=== PATIENT | female | born 1995 | race Caucasian/White ===

== ENCOUNTER 2018-06-18 17:20 | Emergency (ER) | payer OTHER ==
[~2018-06-18] VITALS: Ht 160 cm; Wt 43.2 kg
[2018-06-18] MEDS ORDERED: PRENTAB55 PO (17:27)
[2018-06-18 18:23] LABS: BASO # 0.1 10^3/uL (0.0-0.2); BASO % 0.5 % (0.0-1.0); EOS % 0.3 % (0.0-3.0); HEMATOCRIT 38.8 % (36.0-47.0); HEMOGLOBIN 13.5 g/dl (12.0-15.5); LYMPH # 2.9 10^3/uL (1.5-6.5); LYMPH % 26.7 % (24.0-44.0); MEAN CORPUSCULAR HEMOGLOBIN 31.6 pg (27.0-33.0); MEAN CORPUSCULAR HGB CONC 34.8 g/dl (32.0-36.5); MEAN CORPUSCULAR VOLUME 90.9 fl (80.0-96.0); MONO # 0.7 10^3/uL (0.0-0.8); MONO % 6.2 % (0.0-5.0); NEUTROPHILS # 7.2 10^3/uL (1.8-7.7); NEUTROPHILS % 65.9 % (36.0-66.0); PLATELET COUNT, AUTOMATED 240 10^3/uL (150-450); RED BLOOD COUNT 4.27 10^6/uL (4.00-5.40); WHITE BLOOD COUNT 10.9 10^3/uL (4.0-10.0)
--- NOTE | 2018-06-18 19:15 | REPVR ---
EXAM: US First Trimester, Transabdominal EXAM DATE/TIME: 06/18/2018 6:32 PM CLINICAL HISTORY: 22 years old, female; Signs and symptoms; Lmp or gestational age (in weeks): 7; Antepartum complications; Bleeding; ; Additional info: Vag bleed, +preg TECHNIQUE: Real-time transabdominal obstetrical ultrasound of the maternal pelvis and a first trimester , less than 14 weeks 0 days, with image documentation. COMPARISON: No relevant prior studies available. FINDINGS: GESTATION: Gestation: Single gestational sac within the uterus. Heart rate: heart rate 115 beats per minute. Placenta: Small subchorionic hemorrhage demonstrated superior to the right gestational sac possibly implantation related. Amniotic fluid: Amniotic and chorionic fluid are normal for gestational age. BIOMETRY: Estimated gestational age: Gestational age based on crown-rump length is 6 weeks 4 days. LAURIE 02/07/2019. Gestational age based on LMP is 7 weeks 1 day. LAURIE 02/03/2019 [place]-Rump length: Single pole demonstrated with a crown-rump length of 7 millimeters. MATERNAL: Uterus: Unremarkable. Cervix: Unremarkable. Right adnexa: Unremarkable. Left adnexa: Unremarkable. Intraperitoneal: No intraperitoneal free fluid. IMPRESSION: Unremarkable early gestation of 6 weeks 4 days using crown-rump length. heart rate lower than typically demonstrated at this gestational age. Continued interval followup suggested as clinically directed. Electronically signed by: Chace Marquez On 06/18/2018 19:15:24 PM
[2018-06-18 19:48] VITALS: BP 115/65
== END 2018-06-18 19:49 | disposition home or self-care (01) ==
LOC: M ED 17:20
DX: O20.8 Other hemorrhage in early pregnancy (principal); Z3A.01 Less than 8 weeks gestation of pregnancy; Z79.899 Other long term (current) drug therapy; Z88.8 Allergy status to other drugs, medicaments and biological substances

== ENCOUNTER 2019-01-31 14:10 | Inpatient (IN) | payer OTHER ==
[2019-01-31] VITALS (8 sets, daily range): BP systolic 94–112; BP diastolic 56–70
[~2019-01-31] VITALS: Ht 160 cm; Wt 54.8 kg
[~2019-01-31 14:10] MED LIST: PRENTAB55 PO
[2019-01-31] MEDS ORDERED: UNIS25TA3 PO (14:37)
[2019-01-31] MEDS ORDERED: LACTATED RINGER'S 1000 ML IV STA (15:30)
--- NOTE | 2019-01-31 16:16 | HPEPDOC ---
Obstetrical History & Physical General Date of Admission Jan 31, 2019 at 15:05 Primary Care Physician: Shyla Ibarra MD History of Present Illness OB Considerations: Implantable metal PFO closure device, CPR only NO shocks! History of stroke due to PFO 22y/o G1 @ 39+4 wks by LMP c/w 8 wk US presents with leakage of clear fluid at 1319. Patient denies contractions, vaginal bleeding and endorses active movement. Chief Complaint: LOF, term Information Provided By: Patient Age: 22 : 1 Term: 0 Pre-term: 0 Abortions: 0 Livin Care Care: Good Care Dating Final EDC: Feb 03, 2019 Final EDC for Daily Update: Feb 03, 2019 1st Trimester Date: Jun 28, 2018 Estimated Date of Confinement: Feb 03, 2019 EGA at Admission: 39.4 Antepartum Course Diagnos(e)s History of stroke due to patent foramen ovale Implantable closure device, unable to accept defibrillation Height (inches): 63 Pre- weight (lbs.): 90 Admission Weight (lbs.): 121 Change in Weight (lbs.): 31 Past Medical History Past Obstetrical History : Past Obstetrical History: Primg[employer]ida [employer] OFFICER History: No pertinent history Past Medical History Medical History History of stroke secondary to patent foramen ovale Surgical History: Hernia repair, Tonsilectomy, [place] teeth, Other (Cardiac metal closure device placed. Mastoidectomy.) Family History Significant Family History: No pertinent family hx Social History Marital Status: Family situation: Spouse/partner home Psychosocial History: No pertinent psych hx * Smoker: non-smoker Alcohol: Denies Drugs: denies Abuse Violence Screening Have you been hit/kicked/slapp: No Have you been sexually assault: No Imunizations Tdap status: current Influenza Status: needs Allergies Coded Allergies: naproxen (Verified Adverse Reaction, Severe, renal failure, vomitting, 01/31/19) Medications Scheduled [id number]/Iron Fum/Folic/Docusate ( 19 Tablet) 1 Tab Tab, 1 TAB PO DAILY Scheduled PRN Doxylamine Succinate (Unisom Sleep Aid) 25 Mg Tablet, 1 TAB PO QPM PRN for SLEEP Physical Examination Physical Examination GENERAL: Alert and oriented times three. BREAST: . ABDOMEN: Gravid and non-tender to touch. FETUS: Is vertex (VTX) by sterile vaginal examination (SVE), fetus is vertex (VTX) by [place]. Vertex by TAUS. EFW 3200g HEART RATE: Regular rate and rhythm. LUNGS: Clear to auscultation (CTA). EXTREMITIES: No edema. No clonus. Vital Signs/I&O Vital Signs Date Time Temp Pulse Resp B/P (MAP) Pulse Ox O2 Delivery O2 Flow Rate FiO2 01/31/19 14:33 98.2 104 18 111/69 (83) Laboratory Data 24H LABS Laboratory Tests 2 01/31/19 15:08: Serology Scanned Report Hepatitis B Testing Pertinent Laboratoy Data Blood Type: B+ RBC Antibody Screen: Negative HIV: Negative Hepatitis B: Negative Hepatitis C: Unknown Rapid Plasma Reagin: Nonreactive Rubella: Immune Varicella: Nonreactive Chlamydia/Gonorrhea: Negative Group B Streptococcus: Negative Quad Screen Test: Negative (Maternity 21 negative) Cystic Fibrosis: Negative Anatomy Ultrasound Ultrasound Date: Oct 10, 2018 Placenta Location: Anterior Normal Anatomy: Yes Placenta Previa: No Estimated Weight (grams): 562 Steroid Therapy Steroid Therapy: No Vaginal Examination Dilation: 4 cm Effacement: 70% Station: -2 Cervical Consistency: Soft Cervical Position: Posterior Presentation: Cephalic presentation Position: Vertex (occiput) Assessment Heart Rate (FHR): 150 Variability: Moderate Accelerations: Positive Decelerations: None Tocometer Contractions: Yes Frequency: irregular, every 3-7 min. Duration: less than 60 seconds Strength: palpated as moderate Multi-drug resistant Organism: No history of MDRO Assessment/Plan Assessment 23y/o G1 @ 39+4 wks admitted for PROM clear fluid. EFW 3200g, Dylon FHR tracing. Plan Admit and orient. PATIENT CANNOT HAVE DEFIBRILLATION IN THE EVENT OF A CODE [place] [employer] Professor and consent. Diet: Clear liquid. Group B Streptococcus (GBS) negative. Labs and intravenous (IV) per unit protocol. Counseled on Pitocin and induction of labor (IOL). Lactated Ringers (LR): Bolus 1,000 mL, then at 125 mL/hr. Anticipate normal spontaneous delivery () C-S as appropriate. Labor and Delivery Counseling Discussed with patient procedures on labor and delivery to include external and internal monitoring of contractions and FHR. Discussed medications for induction of labor and medications for pain. Risks of labor and delivery include infections, which would be treated with antibiotics, need for episiotomy or tearing of the vaginal opening which will be repaired with absorbable sutures. Risks of bleeding to include need for blood transfusion with subsequent risks of bloodborne infection (Hepatitis/HIV) or transfusion reaction. Other procedures may be needed for distress such as forceps, vacuum or emergency . Other risks include injury to baby or additional procedures following delivery. Shyla Ibarra MD Jan 31, 2019 16:16
[2019-01-31 16:43] LABS: HEMATOCRIT 37.8 % (36.0-47.0); HEMOGLOBIN 13.2 g/dl (12.0-15.5); MEAN CORPUSCULAR HEMOGLOBIN 33.2 pg (27.0-33.0); MEAN CORPUSCULAR HGB CONC 34.9 g/dl (32.0-36.5); PLATELET COUNT, AUTOMATED 197 10^3/uL (150-450); RED BLOOD COUNT 3.98 10^6/uL (4.00-5.40)
--- NOTE | 2019-01-31 20:18 | IPNPDOC ---
Text Note Date of Service The patient was seen on 01/31/19. NOTE 22y/o G1 @ 39+4 wks by LMP c/w 8 wk US presents with leakage of clear fluid at 1319 S: Patient reports only feeling one painful contraction in last 4 hours. O: 140, mod cecilia +accels, no decels TOCO: q5 minutes DCE: 90/0 Unchanged from prior A/p: G1 @ 39+4 wks with PROM, not in labor after 4 hours observation -Continuous monitoring -Stat pit per protocol -GBS negative: no prophylaxis indicated -Repeat DCE 6 hours or sooner PRN VS,Fishbone, I+O VS, Fishbone, I+O Laboratory Tests 01/31/19 16:23 Vital Signs Date Time Temp Pulse Resp B/P (MAP) Pulse Ox O2 Delivery O2 Flow Rate FiO2 01/31/19 18:54 99.0 86 18 109/59 (76) Shyla Ibarra MD Jan 31, 2019 20:18
[2019-01-31] MEDS ORDERED: OXYTOCIN DRIP 30 UNITS in IV 1 EA IV SCH (21:00)
[2019-01-31] MEDS: LR 1,000 ML IV SCH (21:42)
[2019-02-01] VITALS (27 sets, daily range): BP systolic 79–132; BP diastolic 50–82
[2019-02-01] MEDS ORDERED: FENTANYL 2MCG/ML ROPIVACAINE 0.2% IN 0.9% NACL 100ML IVBAG As Ordered ONE (00:06)
[2019-02-01] MEDS ORDERED: ePHEDrine SULFATE 25 MG/5 ML(5MG/ML) SYRINGE IV PRN (00:45)
[2019-02-01] MEDS ORDERED: REFRIGERATOR IV KEYS XX PRN (00:45)
[2019-02-01] MEDS ORDERED: ONDANSETRON 4MG/2ML VIAL (J2405) IV PRN (00:45)
[2019-02-01] MEDS ORDERED: EPIDURAL COMMENT XX SCH (00:45)
[2019-02-01] MEDS ORDERED: diphenhydrAMINE INJ 50MG/ML VIAL (J1200) IV PRN (00:45)
[2019-02-01] MEDS ORDERED: NALOXONE INJ 0.4 MG/1 ML VIAL (J2310) IV PRN (00:45)
[2019-02-01] MEDS ORDERED: LACTATED RINGER'S 1000 ML IV PRN (00:45)
[2019-02-01] MEDS ORDERED: EPIDURAL/PCA KEYS XX PRN (00:45)
[2019-02-01] MEDS: FENTANYL/ROPIVACAINE/NACL BAG 100 ML EPIDURAL SCH ×2 (01:06→08:36)
--- NOTE | 2019-02-01 04:56 | IPNPDOC ---
Text Note Date of Service The patient was seen on 02/01/19. NOTE 22y/o G1 @ 39+5 wks by LMP c/w 8 wk US presents with leakage of clear fluid at 1319 S: Patient reports only feeling one painful contraction in last 4 hours. O: 130, mod cecilia +accels, no decels TOCO: q5 minutes DCE: 490/0 Unchanged from prior dce 0445 5/75/0, arom forebag clear Pit @ 14 A/p: G1 @ 39+5 in latent labor with Dylon tracing -Continuous monitoring -Continue pit per protocol -GBS negative: no prophylaxis indicated -Repeat DCE 4-6 hours or sooner PRN VS,Fishbone, I+O VS, Fishbone, I+O Laboratory Tests 01/31/19 16:23 Vital Signs Date Time Temp Pulse Resp B/P (MAP) Pulse Ox O2 Delivery O2 Flow Rate FiO2 01/31/19 18:54 99.0 86 18 109/59 (76) I&O- Last 24 Hours up to 6 AM 02/01/19 05:59 Intake Total 1480 ml Balance 1480 ml Shyla Ibarra MD Feb 01, 2019 04:56
[2019-02-01] MEDS: LR 1,000 ML IV SCH (08:36)
--- NOTE | 2019-02-01 09:41 | IPNPDOC ---
Obstetrical Progress Note Date of Service Feb 01, 2019 Subjective Assumed care of 23yo at 39+5wks, admitted [id number] for PROM. B+, GBS Negative. Currently on Pitocin, started last night around 2100. Working epidural in place. Pt currently reports lower abdominal pain and vaginal pressure with contractions. She has not used her epidural bolus button for relief. Objective O: VSS VE: C/C/+1, caput present FHR: 140s moderate variability, + Accels, early decels present; x1 late decel present; overall reassuring CTX: Q2-3 minutes Pitocin running at 20mu/min Vital Signs Date Time Temp Pulse Resp B/P (MAP) Pulse Ox O2 Delivery O2 Flow Rate FiO2 02/01/19 07:24 97.2 65 18 106/70 (82) Assessment Heart Rate (FHR): 140 Variability: Moderate Accelerations: Positive Decelerations: Early, Late (one late deceleration; overall reassuring) Heart Rate Tracing: Category II ( d/t late variable) Tocometer Contractions: Yes Frequency: regular (q 2-3 minutes) Sterile Vaginal Examination Dilation: complete Effacement (%): 100% Station: +1 Cervical Consistency: Soft Cervical Position: Anterior Postion/Presentation: Cephalic presentation Assessment and Plan Status: Reassuring Group B Streptococcus: Negative Anticipate: Vaginal Delivery Additional Comments A: 23yo at 39+5wks, Second Stage, Pitocin currently at 20mu/min; Category II FHT d/t x1 late deceleration, overall reassuring. P: CEFM x2 Pt to use epidural button PRN Allow pt to labor down x1 hour then start pushing Anticipate Consult with OB if indicated RAMSEY DIXON CNM Feb 01, 2019 09:41
[2019-02-01] MEDS ORDERED: ACETAMINOPHEN TAB 650MG DOSE (2X325MG) PO PRN (12:30)
[2019-02-01] MEDS ORDERED: DIBUCAINE 1% OINTMENT 30GM TOP PRN (12:30)
[2019-02-01] MEDS ORDERED: OXYTOCIN INJ 10 UNITS/ML VIAL (J2590) IM ONE (12:30)
[2019-02-01] MEDS ORDERED: ACETAMINOPHEN 500 MG TAB PO PRN (12:30)
[2019-02-01] MEDS ORDERED: DOCUSATE SODIUM 100 MG CAP PO PRN (12:30)
[2019-02-01] MEDS ORDERED: PERCOCET 5MG/325MG TAB PO PRN (12:30)
[2019-02-01] MEDS ORDERED: OXYTOCIN DRIP 30 UNITS in IV 1 EA IV SCH (12:30)
--- NOTE | 2019-02-01 12:36 | DNPDOC ---
[facility] Delivery Note Delivery Note DATE OF DELIVERY: February 01, 2019 PREDELIVERY DIAGNOSIS: 23yo at 39+5wks, PROM with Pitocin Augmentation POST DELIVERY DIAGNOSIS: Delivered. PROCEDURE: Uncomplicated OIL FIELD LABORER: SANTHOSH Dixon ANESTHESIA: Epidural ESTIMATED BLOOD LOSS: 200mL FINDINGS: 7 pound-0 ounce (3180g) infant, Score 9/10, nuchal cord times 1 (loose and easily reducable). DELIVERY SUMMARY: Called to room for 23yo at 39+5wks who was C/C/+2-3, ready for imminent delivery. With continue strong/effective pushing, viable male infant delivered over a protected perineum. head delivered NEIL and restituted to ROT. Loose nuchal cord easily reduced. Left anterior shoulder delivered with ease, followed by right posterior shoulder, then remainder of fetus delivered to maternal abdomen. Strong, lusty cry. Once cord stopped pulsing, clamped x2 and cut by FOB. Placenta delivered spontaneously and appeared intact, 3VC. Pitocin bolus started; fundus firm, EBL 200mL. Upon inspection of vagina, perineum, and cervix, bilateral labial lacerations noted and repaired in usual fashion with 4- 0 vicryl; good hemostasis achieved. Family unit bonding well; anticipate uncomplicated PP course. RAMSEY DIXON CNM Feb 01, 2019 12:36
[2019-02-01] MEDS: PRENATAL VITAMINS CHEWABLE TABLET PO SCH (14:00)
[2019-02-02 06:34] VITALS: BP 113/73
[2019-02-02] MEDS: PRENATAL VITAMINS CHEWABLE TABLET PO SCH (08:27)
--- NOTE | 2019-02-02 09:01 | IPNPDOC ---
Progress Note Date of Service: Feb 02, 2019 Day#: 1 Progress Note SUBJECT Patient is a 23 yo S/P PPD #1. Today without concerns. She has been ambulating, voiding spontaneously without issue and tolerating regular diet. Breast feeding without issue. OBJECTIVE: VITAL SIGNS: Within normal limits, afebrile. Alert and oriented times three. Abdomen: Fundus firm at U-2. Soft, NTTP. LE: no edema/erytherma/tenderness A/p ppd #1, doing well. contraceptive counseling. patient plans on barrier contraceptive. more effective options offered and patient declined. continue with care. anticipate d/c home ppd #2. Le, DO VS, I&O, 24H, Fishbone Vital Signs/I&O Vital Signs Date Time Temp Pulse Resp B/P (MAP) Pulse Ox O2 Delivery O2 Flow Rate FiO2 02/02/19 06:34 98.4 84 16 113/73 (86) Room Air I&O- Last 24 Hours up to 6 AM 02/02/19 06:00 Intake Total 5024 ml Output Total 2200 ml Balance 2824 ml ARNAUD VALVERDE DO Feb 02, 2019 09:01
[2019-02-02 17:56] VITALS: BP 105/71
[2019-02-03 05:34] VITALS: BP 119/77
--- NOTE | 2019-02-03 07:38 | IPNPDOC ---
Progress Note Date of Service: Feb 03, 2019 Progress Note Patient is a 23 yo S/P PPD #2. Today without concerns. She has been ambulating, voiding spontaneously without issue and tolerating regular diet. Breast feeding without issue. Baby may need bili lights. OBJECTIVE: VITAL SIGNS: Within normal limits, afebrile. Alert and oriented times three. Abdomen: Fundus firm at U-2. Soft, NTTP. LE: no edema/erytherma/tenderness A/p ppd #2, doing well. Discharge instructions. Discharge today. DO [place] VS, I&O, 24H, Fishbone Vital Signs/I&O Vital Signs Date Time Temp Pulse Resp B/P (MAP) Pulse Ox O2 Delivery O2 Flow Rate FiO2 02/03/19 05:34 98.0 75 16 119/77 (91) Room Air ARNAUD VALVERDE DO Feb 03, 2019 07:38
--- NOTE | 2019-02-03 07:47 | OBDS ---
[facility] Obstetrical Discharge Sum. Obstetrical Discharge Summary Tree Trimmer Helper/Provider: ARNAUD VALVERDE DO Date: Feb 03, 2019 : 1 Term: 1 Pre-term: 0 Abortions: 0 Livin VDRL: Non-Reactive Rh: Positive Rubella: Immune Weight: pounds (7), ounces (0) Anesthesia: Regional Anesthesia A/P, Post Course List any complications Admission diagnosis: spontaneous rupture of membranes at term Discharge diagnosis: Condition at Discharge: stable Discharge Instructions: Home Activity: as tolerated Diet: regular Medications: filled at ft drum Follow-up: 6 weeks visit Hospital course: Patient admitted for spontaneous ruptured of membranes at term. She progressed to delivery vaginally. course uncomplicated and patient discharged home on day #2. ARNAUD VALVERDE DO Feb 02, 2019 18:37
[2019-02-03] MEDS: PRENATAL VITAMINS CHEWABLE TABLET PO SCH (11:26)
== END 2019-02-03 11:45 | disposition home or self-care (01) | DRG 807 ==
LOC: M LDO 14:10 → M LDI 15:05 → M OBS 02-01 14:35
PROVIDERS: ADMIT Obstetrics & Gynecology; ATTEND Obstetrics & Gynecology
PROC: 10E0XZZ Delivery of Products of Conception, External Approach (ICD-10-PCS; principal; 2019-02-01)
PROC: 0HQ9XZZ Repair Perineum Skin, External Approach (ICD-10-PCS; 2019-02-01)
DX: O42.02 Full-term premature rupture of membranes, onset of labor within 24 hours of rupture (principal); Z37.0 Single live birth; Z3A.39 39 weeks gestation of pregnancy; O69.81X0 Labor and delivery complicated by cord around neck, without compression, not applicable or unspecified; O70.0 First degree perineal laceration during delivery

== ENCOUNTER 2023-03-26 09:05 | Outpatient (CLI) | payer OTHER ==
[~2023-03-26] VITALS: Ht 160 cm; Wt 56.4 kg
[~2023-03-26 09:05] MED LIST changes: +UNIS25TA3 PO
[2023-03-26 09:22] VITALS: BP 122/77
[2023-03-26] MEDS ORDERED: HOME MED LIST COMPLETE! XX SCH (09:30)
== END 2023-03-26 11:28 | disposition home or self-care (01) ==
LOC: M LDO 09:05
PROVIDERS: ATTEND Advanced Practice Midwife
DX: O47.1 False labor at or after 37 completed weeks of gestation (principal); Z3A.38 38 weeks gestation of pregnancy; Z88.8 Allergy status to other drugs, medicaments and biological substances
CPT/HCPCS: 59025; G0463

== ENCOUNTER 2023-04-01 02:33 | Inpatient (IN) | payer OTHER ==
[~2023-04-01] VITALS: Ht 160 cm; Wt 56.4 kg
[2023-04-01] VITALS (7 sets, daily range): BP systolic 101–141; BP diastolic 60–78; O2SAT 97
[2023-04-01] MEDS ORDERED: HOME MED LIST COMPLETE! XX SCH (02:50)
[2023-04-01] MEDS ORDERED: METHYLERGONOVINE MALEATE 0.2MG/ML 1ML VIAL IM PRN ×2 (03:00→04:45)
[2023-04-01] MEDS ORDERED: OXYTOCIN DRIP 30 UNITS in IV 1 EA IV PRN ×4 (03:00)
[2023-04-01] MEDS ORDERED: LR 1,000 ML IV SCH ×2 (03:00→04:45)
[2023-04-01] MEDS ORDERED: TRANEXAMIC ACID INJection 1,000 MG in NS 100 ML IV PRN (03:00)
[2023-04-01] MEDS ORDERED: LIDOCAINE 1% MDV 20ML VIAL INFIL PRN (03:00)
[2023-04-01] MEDS ORDERED: LACTATED RINGER'S 1000 ML IV STA (03:04)
[2023-04-01 03:31] LABS: HEMATOCRIT 37.7 % (36.0-47.0); HEMOGLOBIN 13.4 g/dl (12.0-15.5); MEAN CORPUSCULAR HEMOGLOBIN 32.9 pg (27.0-33.0); MEAN CORPUSCULAR HGB CONC 35.5 g/dl (32.0-36.5); MEAN CORPUSCULAR VOLUME 92.6 fl (80.0-96.0); PLATELET COUNT, AUTOMATED 205 10^3/uL (150-450); RED BLOOD COUNT 4.07 10^6/uL (4.00-5.40); WHITE BLOOD COUNT 9.3 10^3/uL (4.0-10.0)
[2023-04-01 04:26] LABS: CORD GAS ABE A 0.5; CORD GAS ABE V -1.6; CORD GAS HCO3 A 26.7 MMOL/L; CORD GAS O2 SAT A 37.8 %; CORD GAS O2 SAT V 66.2 %; CORD GAS PCO2 A 48.2 mmHg; CORD GAS PCO2 V 34.4 mmHg; CORD GAS PH A 7.361 UNITS; CORD GAS PH V 7.424 UNITS; CORD GAS PO2 A 16.8 mmHg; CORD GAS PO2 V 24.8 mmHg; CORD GAS SBC A 23.4 MMOL/L; CORD GAS SBC V 22.3 MMOL/L; CORD GAS TCO2 A 28.2 MMOL/L; CORD GAS TCO2 V 23.1 MMOL/L
[2023-04-01] MEDS ORDERED: OXYTOCIN DRIP 30 UNITS in IV 1 EA IV SCH (04:45)
[2023-04-01] MEDS ORDERED: RHOGAM 300MCG (1500IU) INJ IM SCH (04:45)
[2023-04-01] MEDS ORDERED: ONDANSETRON 4MG 2ML VIAL IV PRN (04:45)
[2023-04-01] MEDS ORDERED: DOCUSATE SODIUM 100MG CAPSULE PO PRN (04:45)
[2023-04-01] MEDS ORDERED: METOCLOPRAMIDE INJ 10MG/2ML VIAL IV PRN (04:45)
[2023-04-01] MEDS ORDERED: DIBUCAINE 1% OINTMENT 30GM TOP PRN (04:45)
[2023-04-01] MEDS ORDERED: ACETAMINOPHEN TAB 650MG DOSE (2X325MG) PO PRN (04:45)
[2023-04-01] MEDS ORDERED: ACETAMINOPHEN 500 MG TAB PO PRN (04:45)
[2023-04-01] MEDS ORDERED: PHYTONADIONE 1MG/0.5ML SYRINGE As Ordered ONE (04:51)
[2023-04-01] MEDS ORDERED: ERYTHROMYCIN OPHTH OINT As Ordered ONE (04:52)
[2023-04-01] MEDS ORDERED: HEPATITIS B VAC *BIRTH DOSE ONLY*(ENGERIX) 10 MCG/0.5 ML SYRINGE As Ordered ONE (04:52)
[2023-04-01] MEDS ORDERED: PRENATAL VITAMINS CHEWABLE TABLET PO SCH (09:00)
[2023-04-01] MEDS ORDERED: SLF 3 ML SYR IV PRN (09:40)
[2023-04-01] MEDS: PRENATAL VITAMINS CHEWABLE TABLET PO SCH (09:51)
[2023-04-01] MEDS ORDERED: SLF 3 ML SYR IV SCH (14:00)
[2023-04-02 06:00] VITALS: BP 94/56
[2023-04-02 07:40] LABS: HEMATOCRIT 35.6 % (36.0-47.0); MEAN CORPUSCULAR HEMOGLOBIN 31.9 pg (27.0-33.0); MEAN CORPUSCULAR HGB CONC 33.7 g/dl (32.0-36.5); MEAN CORPUSCULAR VOLUME 94.7 fl (80.0-96.0); PLATELET COUNT, AUTOMATED 154 10^3/uL (150-450); RED BLOOD COUNT 3.76 10^6/uL (4.00-5.40); WHITE BLOOD COUNT 8.8 10^3/uL (4.0-10.0)
[2023-04-02] MEDS: PRENATAL VITAMINS CHEWABLE TABLET PO SCH (10:39)
[2023-04-03] MEDS ORDERED: MEASLES,MUMPS,RUBELLA VACCINE INJ (MMR-II) SC.IMMUN ONE (09:00)
== END 2023-04-02 14:15 | disposition home or self-care (01) | DRG 807 ==
LOC: M LDO 02:33 → M LDI 02:58 → M OBS 06:10
PROVIDERS: ADMIT Obstetrics & Gynecology; ATTEND Obstetrics & Gynecology
PROC: 10E0XZZ Delivery of Products of Conception, External Approach (ICD-10-PCS; principal; 2023-04-01)
DX: O69.82X0 Labor and delivery complicated by other cord entanglement, without compression, not applicable or unspecified (principal); Z37.0 Single live birth; Z3A.38 38 weeks gestation of pregnancy

== ENCOUNTER 2023-07-04 07:06 | Day surgery (SDC) | payer OTHER ==
[~2023-07-04] VITALS: Ht 160 cm; Wt 45.4 kg
[~2023-07-04 07:06] MED LIST changes: +PRENTAB53 PO
[2023-07-04 07:51] LABS: HEMATOCRIT 37.3 % (36.0-47.0); HEMOGLOBIN 12.7 g/dl (12.0-15.5)
[2023-07-04] MEDS ORDERED: LR 1,000 ML IV SCH ×2 (08:00→10:15)
[2023-07-04] MEDS ORDERED: propofoL 200 MG/20 ML VIAL As Ordered ONE (08:11)
[2023-07-04] MEDS ORDERED: KETOROLAC 60MG 2ML VIAL As Ordered ONE (08:11)
[2023-07-04] MEDS ORDERED: ONDANSETRON 4MG 2ML VIAL As Ordered ONE (08:11)
[2023-07-04] MEDS ORDERED: LIDOCAINE 2% 100MG/5ML SDV (FOR ANES.) As Ordered ONE (08:11)
[2023-07-04] MEDS ORDERED: MIDAZOLAM INJ 2MG/2ML VIAL As Ordered ONE (08:15)
[2023-07-04] MEDS ORDERED: IODINE STRONG SOLN 15ML BTL As Ordered ONE (08:59)
[2023-07-04] MEDS ORDERED: ACETAMINOPHEN 1000MG 100ML IV BAG As Ordered ONE (09:42)
[2023-07-04] MEDS: LIDOCAINE W/EPINEPHRINE 1% 20ML VIAL As Ordered ONE (09:57)
[2023-07-04] MEDS: LEVONORGESTREL As Ordered ONE (09:57)
[2023-07-04] MEDS ORDERED: oxyCODONE 5MG TAB PO PRN (10:15)
[2023-07-04] MEDS ORDERED: fentaNYL 100 MCG/2 ML INJECTION IV PRN (10:15)
[2023-07-04] MEDS ORDERED: ONDANSETRON 4MG 2ML VIAL IV PRN (10:15)
[2023-07-04] MEDS ORDERED: HYDROMORPHONE HCL 0.5 MG/ 0.5 ML SYRINGE IV PRN (10:15)
[2023-07-04 10:55] VITALS: BP 116/75; TEMP 97.7; O2SAT 100
== END 2023-07-04 11:25 | disposition home or self-care (01) ==
LOC: M SDC 07:06
PROVIDERS: ATTEND Obstetrics & Gynecology
DX: N87.1 Moderate cervical dysplasia (principal); N72 Inflammatory disease of cervix uteri; Z30.430 Encounter for insertion of intrauterine contraceptive device; Z86.73 Personal history of transient ischemic attack (TIA), and cerebral infarction without residual deficits; Z90.49 Acquired absence of other specified parts of digestive tract; Z88.6 Allergy status to analgesic agent
CPT/HCPCS: 36415; 57460; 58300; 81025; 85014; 85018; 88307; J0131; J1100; J1885; J2405; J7301

== ENCOUNTER → 2025-01-11 | Outpatient (REF) | payer OTHER ==
[2025-01-11 18:30] LABS: APPEARANCE, URINE HAZY (CLEAR); BACTERIA, URINE AUTO 1+ (NEGATIVE); BILIRUBIN, URINE AUTO NEGATIVE (NEGATIVE); BLOOD, URINE BLOOD 3+ (NEGATIVE); GLUCOSE, URINE (UA) AUTO NEGATIVE (NEGATIVE); KETONE, URINE AUTO NEGATIVE (NEGATIVE); LEUKOCYTE ESTERASE, URINE AUTO 3+ (NEGATIVE); NITRITE, URINE AUTO NEGATIVE (NEGATIVE); PROTEIN, URINE AUTO 2+ mg/dL (NEGATIVE); RBC, URINE AUTO 34 /HPF (0-3); SPECIFIC GRAVITY URINE AUTO 1.006 (1.002-1.035); SQUAMOUS EPITHELIAL CELL UR AU 3 /HPF (0-6); TRANSITIONAL EPITHELIAL AUTO 1 /HPF; UROBILINOGEN, URINE AUTO 0.2 mg/dL (0.0-2.0); WBC, URINE AUTO 114 /HPF (0-3)
== END ==
LOC: M LAB REF 18:14
DX: N39.0 Urinary tract infection, site not specified (principal)